=== PATIENT | female | born 1945 | race Caucasian/White ===

== ENCOUNTER 2020-04-11 10:59 | Outpatient (CLI) | payer MEDICARE, SELFPAY ==
--- NOTE | 2020-04-11 11:10 | US_ITS ---
WS: [id number] INDICATION: Left dorsal foot pain TECHNIQUE: Ultrasound soft tissue area of concern FINDINGS: Ultrasound soft tissue area of concern dorsal foot. Normal underlying subcutaneous soft tis sues. No evidence of drainable abscess or fluid collection. No cystic or solid lesions. US/US soft tissue/extremity [id number] IMPRESSION: Normal dorsal foot ultrasound
--- NOTE | 2020-04-11 11:10 | XR_ITS ---
WS: [id number] XR foot LT min 3V* [id number] REASON FOR EXAM: LEFT FOOT PAIN FINDINGS: There is soft tissue swelling of the left foot. There are mild changes of osteoarthropathy with joint space narrowing and subchondral sclerosis in th e middle and distal interphalangeal joints of the second through the fifth toe. There is deformity of the bases of the second through the fourth metatarsals and alteration in the estela int spaces between these metatarsals on the mid foot. Moderate sized enthesophytes from the anterior and posterior calcaneus. XR/XR foot LT min 3V* [id number] IMPRESSION: The abnormality seen at the midfoot forefoot junction at the base of the second through the fourth metatarsals could represent old healed fracture or Lisfranc injury. Correlate with patient's history of trauma or localized pain.
== END 2020-04-11 11:00 | disposition home or self-care (01) ==
PROVIDERS: Visit Provider Nurse Practitioner Family
DX: M79.672 Pain in left foot (principal)
CPT/HCPCS: 73630; 76882

== ENCOUNTER 2020-05-11 13:07 | Outpatient (CLI) | payer MEDICARE, SELFPAY ==
--- NOTE | 2020-05-11 12:45 | USCV_ITS ---
Rosemary Perry Age: 74 Gender: F : 1945 Exam Date: 05/11/2020 13:26 Ordering Phys: Adelina Silveira MD ([email or web address]) Technologist: Saritha Cuba Exam Location: [facility] [place] Indication: DYSPNEA BP: 164 / 72 HR: 64 Rhythm: Sinus Technical Quality: Adequate MEASUREMENTS (Male / Female) Normal Values 2D ECHO LV Diastolic Diameter PLAX 4.3 cm 4.2 - 5.9 / 3.9 - 5.3 cm LV Systolic Diameter PLAX 2.3 cm LV Chamber Size 2.5 cm IVS Diastolic Thickness 1.6 cm 0.6 - 1.0 / 0.6 - 0.9 cm IVS Systolic Thickness 1.9 cm LVPW Diastolic Thickness 2.2 cm 0.6 - 1.0 / 0.6 - 0.9 cm LVPW Systolic Thickness 2.2 cm RV Chamber Size 2.6 cm LVOT Diameter 2.0 cm LV Ejection Fraction 2D Teich 77.8 % LV Ejection Fraction MOD 2C 73.5 % LV Ejection Fraction 2C AL 72.6 % LA Diameter 3.4 cm LA Width 3.6 cm LA Height 4.6 cm RA Width 3.4 cm RA Height 3.7 cm Aorta at Sinotubular Diameter 2.4 cm M-MODE LV Diastolic Diameter MM 5.2 cm 4.2 - 5.9 / 3.9 - 5.3 cm LV Systolic Diameter MM 3.5 cm LV Ejection Fraction MM Teich 60.0 % IVS Diastolic Thickness MM 1.0 cm 0.6 - 1.0 / 0.6 - 0.9 cm IVS Systolic Thickness MM 1.7 cm LVPW Diastolic Thickness MM 1.6 cm 0.6 - 1.0 / 0.6 - 0.9 cm LVPW Systolic Thickness MM 1.9 cm Aortic Annulus Diameter 3.1 cm LA Ao Ratio MM 1.4 MV E Point Septal Separation 0.9 cm DOPPLER AV Peak Velocity 126.0 cm/s LVOT Peak Velocity 92.0 cm/s AV Area Cont Eq vti 2.9 cm squared AV Area Cont Eq pk 2.3 cm squared MV Area PHT 2.7 cm squared Mitral E to A Ratio 0.9 MV E' Velocity 43.5 cm/s Mitral E to MV E' Ratio 7.3 Mitral E to LV E' Lateral Ratio 6.2 Mitral E to LV E' Septal Ratio 9.0 TR Peak Velocity 139.0 cm/s TR Peak Gradient 7.7 mmHg TV Peak E Velocity 87.0 cm/s Right Atrial Pressure 3.0 mmHg Pulmonary Artery Systolic Pressu 10.7 mmHg PV Peak Velocity 108.0 cm/s RV Acceleration Time 0.1 s RV Ejection Time 0.4 s RV AcT/ET 0.1 FINDINGS Left Ventricle Normal left ventricular size, systolic function and wall thickness, with no diagnostic regional wall motion abnormalities. Left ventricular ejection fraction is estimated at 60 %. Normal diastolic function. Right Ventricle Normal right ventricular size and systolic function. Right ventricular systolic pressure 10.7 mmHg. Right Atrium Normal right atrial size. Left Atrium Mildly increased left atrial size. Mitral Valve Mildly thickened mitral valve. No mitral valve stenosis. No significant mitral valve regurgitation. Aortic Valve Aortic valve not well visualized. No aortic valve stenosis. No aortic valve regurgitation. Tricuspid Valve Structurally normal tricuspid valve. Trace to mild tricuspid valve regurgitation. Pulmonic Valve Pulmonic valve not well visualized. Trace pulmonary valve regurgitation. Pericardium No pericardial effusion. Aorta Normal size aortic root and proximal ascending aorta. CONCLUSIONS 1. Normal left ventricular size, systolic function and wall thickness, with no diagnostic regional wall motion abnormalities. Left ventricular ejection fraction is estimated at 60 %. Normal diastolic function. 2. Normal right ventricular size and systolic function. 3. Trace to mild tricuspid valve regurgitation. 4. Norml pulmonary artery pressure. 5. No prior similar studies to compare. Adelina Silveira MD (Electronically Signed) Final Date: 16 May 2020 07:17 S
== END 2020-05-11 13:08 | disposition home or self-care (01) ==
LOC: US 13:08
PROVIDERS: Visit Provider Internal Medicine Cardiovascular Disease
DX: R06.00 Dyspnea, unspecified (principal); I07.1 Rheumatic tricuspid insufficiency
CPT/HCPCS: 93306

== ENCOUNTER → 2020-06-28 10:37 | Outpatient (BNVA) | payer MEDICARE, SELFPAY | PROVIDERS: Visit Provider Internal Medicine Cardiovascular Disease | DX: R06.00 Dyspnea, unspecified (principal); I10 Essential (primary) hypertension; I51.7 Cardiomegaly | CPT/HCPCS: 80048; 83735; 83880 ==

== ENCOUNTER → 2021-08-22 10:44 | Outpatient (BNVA) | payer MEDICARE, SELFPAY | PROVIDERS: PCP Family Medicine; Visit Provider Internal Medicine Cardiovascular Disease | DX: R06.00 Dyspnea, unspecified (principal); I11.9 Hypertensive heart disease without heart failure; Z68.39 Body mass index [BMI] 39.0-39.9, adult | CPT/HCPCS: 99214 ==

== ENCOUNTER 2022-03-27 09:26 | Outpatient (CLI) | payer MEDICARE, SELFPAY ==
--- NOTE | 2022-03-27 09:45 | MM_ITS ---
WS: [id number] BILATERAL SCREENING DIGITAL TOMOSYNTHESIS MAMMOGRAM WITH CAD HISTORY: SCREEN COMPARISON: 03/16/2018 and 11/09/2014 Bilateral CC and MLO views with tomosynthesis and synthetic mammography submitted. Computer aided det ection analyzed. Breast composition: The breasts are heterogeneously dense, which may obscure small masses. No suspici ous masses, microcalcifications or architectural distortion. Benign calcifications in each breast. De nse fibroglandular tissue in the anterior breast. MM/[place] [id number] IMPRESSION: BI-RADS: 2-Benign FOLLOW UP: 1 Year Follow-up
== END 2022-03-27 09:27 | disposition home or self-care (01) ==
LOC: RAD 09:27
PROVIDERS: PCP Family Medicine; Visit Provider Family Medicine
DX: Z12.31 Encounter for screening mammogram for malignant neoplasm of breast (principal)
CPT/HCPCS: 77063; 77067

== ENCOUNTER → 2022-10-29 14:16 | Outpatient (BNVA) | payer MEDICARE, SELFPAY | PROVIDERS: PCP Family Medicine; Visit Provider Internal Medicine Cardiovascular Disease | DX: R06.00 Dyspnea, unspecified (principal); I10 Essential (primary) hypertension; E66.9 Obesity, unspecified; Z68.37 Body mass index [BMI] 37.0-37.9, adult | CPT/HCPCS: 99214 ==

== ENCOUNTER → 2022-11-05 12:47 | Outpatient (BNVA) | payer MEDICARE, SELFPAY | PROVIDERS: PCP Family Medicine; Visit Provider Specialist | DX: G56.03 Carpal tunnel syndrome, bilateral upper limbs (principal); M65.331 Trigger finger, right middle finger; M65.342 Trigger finger, left ring finger | CPT/HCPCS: 73130; 99204 ==

== ENCOUNTER → 2023-01-14 10:04 | Outpatient (BNVA) | payer MEDICARE, SELFPAY | PROVIDERS: PCP Family Medicine; Visit Provider Specialist | DX: Z01.818 Encounter for other preprocedural examination (principal); G56.03 Carpal tunnel syndrome, bilateral upper limbs; M65.331 Trigger finger, right middle finger; M65.342 Trigger finger, left ring finger | CPT/HCPCS: 36415; 80053; 81003; 85025; 99214 ==

== ENCOUNTER 2023-01-20 08:32 | Day surgery (SDC) | payer MEDICARE, SELFPAY ==
[2023-01-20] VITALS (8 sets, daily range): BP systolic 147–198; BP diastolic 78–97; PULSE 58–78; RESP 15–22; TEMP 36.1–36.6; O2SAT 90–100
[2023-01-20] MEDS: sodium chloride 0.9% 1,000 ML 30 ML IV (09:22)
[2023-01-20] MEDS: acetaminophen 1,000 MG/100 ML PIGGYBACK 400 MG IV (09:22)
[2023-01-20] MEDS: CELEcoxib 200 mg Capsule 400 MG PO (09:24)
[2023-01-20] MEDS: gabapentin 300 mg Capsule PO (09:24)
--- NOTE | 2023-01-20 10:02 | ANES.PREANE2 ---
Pre-Anesthetic Assessment Height/Weight: Height 1.63 m Weight 101.151 kg Temp Pulse Resp BP Pulse Ox O2 Del Method 97.3 F L 67 18 147/87 95 Room Air 01/20/23 08:48 01/20/23 08:48 01/20/23 08:48 01/20/23 08:48 01/20/23 08:48 01/20/23 08:53 Operation Date: 01/20/23 10:15 Proposed Procedures p Right carpal tunnel release [id number],Right middle finger trigger finger release [id number](Right) - Teresa Almodovar MD s Trigger Finger Release(Right) - Teresa Almodovar MD Familial anesthetic complications: none Was Beta Lizette taken within 24 hours: N/A Was Clonidine taken within 24 hours: N/A Last intake: Intake Last Liquid Date 01/19/23 Last Liquid Time 19:00 Last Solid Date 01/19/23 Last Solid Time 19:00 Social No alcohol and No tobacco Exam alert, oriented x 3, clear to auscultation bilaterally and regular rate & rhythm Airway Submandibular: within normal limits Cervical ROM: within normal limits Mallampati: Class II Dentition: full CV/HEM Hypertension LVH Metabolic Hyperlipidemia and Morbid Obesity [facility] [place] Osteoarthritis/DJD Anesthetic Plan ASA status: 3 Anesthesia: Choice Medications/Allergies Home Medications Medication Instructions Recorded Confirmed Last Taken Type acetaminophen 325 mg tablet 325 mg PO QID PRN Pain 10/29/22 01/19/23 01/18/23 History ibuprofen 200 mg tablet 200 mg PO Q6H PRN Pain 10/29/22 01/19/23 01/12/23 History naproxen 500 mg tablet 500 mg PO BID PRN Pain 10/29/22 01/19/23 01/12/23 History pravastatin 10 mg tablet 10 mg PO DAILY #30 tabs 10/29/22 01/19/23 01/19/23 Rx vitamin D3 25 mcg (1,000 unit)-vit 1 tab PO DAILY 10/29/22 01/19/23 01/15/23 History K2 90 mcg disintegrating tablet chlorthalidone 25 mg tablet 37.5 mg PO DAILY #135 tabs 01/12/23 01/19/23 01/19/23 Rx omega-3 fatty acids 1,000 mg 1,000 mg PO DAILY 01/15/23 01/19/23 01/15/23 History capsule Allergies Allergy/AdvReac Type Severity Reaction Status Date / Time atorvastatin AdvReac Mild Leg pain, Verified 01/20/23 08:42 fatigue, gait problems Current Medications Generic Name Dose Route Start Last Admin Trade Name Freq PRN Reason Stop Dose Admin Sodium Chloride 1,000 mls @ 30 mls/hr 01/20/23 08:45 01/20/23 09:22 Sodium Chloride 0.9% IV 01/21/23 08:44 30 mls/hr .Q24H SURY Administration PFSH Anesthesia Medical History Arthritis, midfoot Gout HTN (hypertension) Hyperlipidemia LVH (left ventricular hypertrophy) Obesity Surgical History History of mandibular surgery Hx laparoscopic cholecystectomy Hx of hysterectomy Hx of tonsillectomy Family History Denies family history of CAD (coronary artery disease) Clotting disorder Anesthesia complication Bleeding disorder Stroke Social History Smoking and tobacco status: never smoked Alcohol intake: never Substance/Drug Use: never Data Anesthesia Cardiac Studies: Echocardiogram Ultrasound 05/11/20
--- NOTE | 2023-01-20 10:19 | P.HPUD_ITS ---
Surgery/Procedure H&P Update DATE OF PROCEDURE: January 20, 2023 DATE H&P PERFORMED: 01/15/23 H&P UPDATE INFORMATION: I have reviewed H&P completed within last 30 days, I have examined patient prior to procedure, No changes to prior documentation and H&P is in [facility] [place] EMR on date indicated PLANNED PROCEDURE: Operation Date: 01/20/23 10:15 Proposed Procedures p Right carpal tunnel release [id number],Right middle finger trigger finger release [id number](Right) - Teresa Almodovar MD s Trigger Finger Release(Right) - Teresa Almodovar MD Related Problem List Diagnoses (1) Carpal tunnel syndrome on right: (2) Trigger finger, right middle finger:
[2023-01-20] MEDS: ceFAZolin 2,000 MG in sodium chloride 0.9% (plus) 50 ML 100 MG IV (10:40)
[2023-01-20] MEDS: BUPivacaine 0.5% INJ 30 mL INJECTION (11:07)
--- NOTE | 2023-01-20 11:43 | P.OP_ITS ---
Operative Report Date of procedure: January 20, 2023 Pre-op diagnosis: Right carpal tunnel syndrome and triggering of right middle finger Post-op diagnosis: Right carpal tunnel syndrome and triggering of right middle finger Post-op findings: Purplish discoloration of the median nerve and significantly tight A1 srikanth to the right long finger Procedure done: Right carpal tunnel release with release right middle finger triggering Pathology: none sent Surgeon: Teresa Almodovar Farm Machine Tender: None Anesthesia: General (Per LMA, ASA 3 with local at end of case) Estimated blood loss (mL): 3 Tourniquet time (min): 21 (At 250 mmHg) IV fluids (mL): 100 Urine output (mL): 0 (No Cadena) Complications: None Condition: stable Disposition: PACU (Then return to same-day surgery for discharge to home) Brief History: This 77-year-old woman presented with complaints consistent with bilateral carpal tunnel syndrome. She also has had locking up of her right middle finger as well as her left ring finger. The patient presents today to address her right carpal tunnel as this is her more symptomatic hand. She has difficulties with activities of daily living. She had a nerve conduction study at [facility] in [place] which was consistent with carpal tunnel syndrome as well bilaterally. Today, she wishes to have her carpal tunnel release as well as undergo release of triggering of her right long finger. In the office, risks and complications were discussed, and consents were signed. Procedure: The patient was brought to the operating theater. General anesthesia was administered per LMA, ASA 3. The arm was exsanguinated, and the tourniquet was elevated to 250 mmHg for a total tourniquet time of 21 minutes. The patient was also given Ancef 2 g preoperatively. The arm was then prepped and draped with DuraPrep in usual fashion with the arm draped free. A surgical pause was performed. At the time, the surgical pause, we confirmed the site and side of surgery. We also confirmed the patient's identity, appropriate and timely administration of preoperative antibiotics and preoperative surgical markings. An incision was then made along the thenar crease. The incision crossed the wrist joint in a curvilinear fashion. Dissection continued through skin and soft tissues using a scalpel. The palmaris longus was identified along with the transverse carpal ligament. Each of these was released carefully to avoid injury to the median nerve. We were able to dissect gently into the carpal canal which was noted to be quite tight with significant compression across the median nerve. The nerve was visualized and was an hourglass shape with significant purpleish discoloration. Following release, the canal was subsequently palpated to assure there was no bony encroachment upon the canal. There was a quite thickened fibrous tissue within the canal, and this was opened longitudinally as well. The canal was then palpated distally and proximally to assure that my small finger was passed easily without impingement. Finding this to be so, attention was directed to closure. The wound was irrigated with ropivacaine plai n. It was then closed with 3-0 nylon in an interrupted mattress fashion. An incision was made along the distal palmar crease beneath the middle fingers. Dissection continued through the skin to the subcutaneous tissues using a scalpel. Blunt dissection was then utilized to spread soft tissues and allow access to the A1 srikanth. It was then incised longitudinally and sharply using a knife. This was accomplished without difficulty and atraumatically. Once the A1 srikanth was released, tendons were brought up out of the wound and evaluated. There was noted to be no mass or other significant pathology on the tendons. Tendons were returned to normal position. We then irrigated the wounds and subsequently closed them with 3-0 nylon with an interrupted mattress type suture. Following closure of the wound, the wound was injected with half percent bupivacaine into the subcutaneous tissues as a local anesthetic. Sterile dressing was then placed consisting of Dermabond, OpSite, fluffed fluffs, sterile soft roll, and an Praveen wrap. The patient was returned to recovery in satisfactory condition. She will be discharged home to follow-up with me in the office. There were no complications and no specimens. Related Problem List Diagnoses (1) Carpal tunnel syndrome on right: (2) Trigger finger, right middle finger:
[2023-01-20] MEDS: HYDROcodone-acetaminophen 5-325 mg Tablet 1 TAB PO (12:44)
--- NOTE | 2023-01-20 16:11 | ANE.PACU2 ---
Inpatient post-anesthesia follow up: Airway intact: Yes Vital signs: Temperature 97.8 F Pulse Rate 66 Respiratory Rate 18 Blood Pressure 160/90 Pulse Oximetry 90 Oxygen Delivery Me thod Room Air Oxygen Flow Rate 8 Fraction of Inspir ed Oxygen Hydration adequate: Yes Nausea and vomiting: No Pain level: 2 Mental status: Baseline
== END 2023-01-20 13:34 | disposition home or self-care (01) ==
LOC: OR 08:41 → OPS 09:19
PROVIDERS: PCP Family Medicine; Visit Provider Specialist
PROC: (CPT 64721; principal; 2023-01-20 10:05)
PROC: (CPT 26055; 2023-01-20 10:05)
DX: M65.331 Trigger finger, right middle finger (principal); I10 Essential (primary) hypertension; E78.5 Hyperlipidemia, unspecified; E66.01 Morbid (severe) obesity due to excess calories; Z68.38 Body mass index [BMI] 38.0-38.9, adult; G56.03 Carpal tunnel syndrome, bilateral upper limbs
CPT/HCPCS: 26055; 64721; J0131; J0690; J1100; J1200; J2405; J2704; J3010; J3490; J7030

== ENCOUNTER → 2023-02-04 08:31 | Outpatient (BNVA) | payer MEDICARE, SELFPAY | PROVIDERS: PCP Family Medicine; Visit Provider Nurse Practitioner Family | DX: G56.01 Carpal tunnel syndrome, right upper limb (principal); Z98.890 Other specified postprocedural states | CPT/HCPCS: 99024 ==

== ENCOUNTER → 2023-02-13 09:39 | Outpatient (BNVA) | payer MEDICARE, SELFPAY | PROVIDERS: PCP Family Medicine; Visit Provider Nurse Practitioner Family | DX: L57.0 Actinic keratosis (principal); L82.0 Inflamed seborrheic keratosis; L82.1 Other seborrheic keratosis; L81.4 Other melanin hyperpigmentation; L57.8 Other skin changes due to chronic exposure to nonionizing radiation; L91.8 Other hypertrophic disorders of the skin; Z85.828 Personal history of other malignant neoplasm of skin | CPT/HCPCS: 11200; 17000; 17003; 17110; 99213 ==

== ENCOUNTER → 2023-03-20 10:45 | Outpatient (BNVA) | payer MEDICARE, SELFPAY | PROVIDERS: PCP Family Medicine; Visit Provider Nurse Practitioner | DX: G56.01 Carpal tunnel syndrome, right upper limb (principal); Z98.890 Other specified postprocedural states | CPT/HCPCS: 99024 ==

== ENCOUNTER 2023-03-25 14:44 | Outpatient (RCR) | payer MEDICARE, SELFPAY | END 2023-04-07 23:59 | disposition home or self-care (01) | LOC: SOT 14:44 | PROVIDERS: PCP Family Medicine; Visit Provider Nurse Practitioner | DX: Z47.89 Encounter for other orthopedic aftercare (principal); M79.641 Pain in right hand; R53.1 Weakness | CPT/HCPCS: 97022; 97110; 97140; 97165; 97530 ==

== ENCOUNTER 2023-04-08 06:00 | Outpatient (RCR) | payer MEDICARE, SELFPAY | END 2023-05-07 23:59 | disposition home or self-care (01) | LOC: SOT 06:00 | PROVIDERS: PCP Family Medicine; Visit Provider Nurse Practitioner | DX: M79.641 Pain in right hand (principal); Z51.89 Encounter for other specified aftercare | CPT/HCPCS: 97022; 97035; 97110; 97140 ==

== ENCOUNTER → 2023-10-20 10:13 | Outpatient (BNVA) | payer MEDICARE, SELFPAY | PROVIDERS: PCP Family Medicine; Visit Provider Nurse Practitioner Family | DX: I10 Essential (primary) hypertension (principal) | CPT/HCPCS: 99214 ==

== ENCOUNTER 2023-11-11 10:17 | Outpatient (CLI) | payer MEDICARE, SELFPAY ==
--- NOTE | 2023-11-11 10:30 | USCV_ITS ---
Rosemary Perry Age: 78 Gender: F : 1945 Exam Date: 11/11/2023 10:30 Ordering Phys: Barbara Sears Technologist: DANIEL Exam Location: [facility] [place] Indication: shortness of breath BP: 141 / 78 HR: 67 Rhythm: Sinus Technical Quality: Adequate MEASUREMENTS (Male / Female) Normal Values 2D ECHO LV Diastolic Diameter PLAX 4.6 cm 4.2 - 5.9 / 3.9 - 5.3 cm IVS Diastolic Thickness 0.8 cm 0.6 - 1.0 / 0.6 - 0.9 cm IVS Systolic Thickness 1.7 cm LVPW Diastolic Thickness 1.7 cm 0.6 - 1.0 / 0.6 - 0.9 cm LVPW Systolic Thickness 2.2 cm LVOT Diameter 2.0 cm LV Ejection Fraction 2D Teich 59.1 % LV Ejection Fraction MOD 2C 51.0 % LV Ejection Fraction 2C AL 51.7 % LA Diameter 3.8 cm RA Systolic Volume 4C AL 31.5 ml RA Systolic Volume 4C MOD 30.2 ml LA Sys Volume AL 37.3 cm cubed LA Sys Volume Index AL 16.8 cm cubed/m squared Aorta at Sinotubular Diameter 2.1 cm IVC Diameter 1.8 cm M-MODE LA Ao Ratio MM 1.1 AV Cusp Separation MM 1.5 cm DOPPLER AV Peak Velocity 125.0 cm/s LVOT Peak Velocity 74.0 cm/s AV Area Cont Eq vti 2.1 cm squared AV Area Cont Eq pk 1.8 cm squared MV Peak Velocity 103.0 cm/s MV Area PHT 2.7 cm squared Mitral E to A Ratio 0.7 TR Peak Velocity 144.0 cm/s TR Peak Gradient 8.3 mmHg TR Mean Velocity 133.0 cm/s TR Mean Gradient 7.3 mmHg TR Velocity Time Integral 45.3 cm TV Peak E Velocity 43.0 cm/s Right Atrial Pressure 3.0 mmHg Pulmonary Artery Systolic Pressu 11.3 mmHg PV Peak Velocity 86.0 cm/s RV Ejection Time 0.4 s FINDINGS Left Ventricle Normal left ventricular size and systolic function, EF 55%, visual. No regional wall motion abnormalities.Grade I/IV diastolic dysfunction (abnormal relaxation filling pattern), normal to mildly elevated filling pressures. Right Ventricle The right ventricle is normal in size and function. Right Atrium The right atrium is normal in size. Left Atrium The left atrium is normal in size. Mitral Valve No gross abnormalities Aortic Valve No gross abnormalities Tricuspid Valve No gross abnormalities Pulmonic Valve No gross abnormalities Pericardium Normal pericardium without effusion. Aorta Normal ascending aorta dimension. IVC The inferior vena cava appears normal. CONCLUSIONS Normal left ventricular size and systolic function, EF 55%, visual. No regional wall motion abnormalities.Grade I/IV diastolic dysfunction (abnormal relaxation filling pattern), normal to mildly elevated filling pressures. Normal cardiac chamber sizes. No gross valvular abnormalities There is no pericardial effusion. There are no intracardiac masses. Compared to the study from 05/11/2020, there may not be a significant change Dr Vilma Mojica MD FACC (Electronically Signed) Final Date: 13 November 2023 14:59 S
== END 2023-11-11 10:18 | disposition home or self-care (01) ==
LOC: RAD 10:17
PROVIDERS: PCP Family Medicine; Visit Provider Nurse Practitioner Family
DX: I10 Essential (primary) hypertension (principal); I50.30 Unspecified diastolic (congestive) heart failure
CPT/HCPCS: 93306

== ENCOUNTER 2024-01-01 14:41 | Outpatient (CLI) | payer MEDICARE, SELFPAY ==
--- NOTE | 2024-01-01 14:52 | MM_ITS ---
WS: [id number] BILATERAL 3D TOMOSYNTHESIS DIGITAL SCREENING MAMMOGRAPHY WITH CAD CLINICAL INFORMATION: SCREEN HISTORY: Screening mammogram. No current complaints. COMPARISON: 2021 TECHNIQUE: Bilateral CC and MLO views. FINDINGS: The breasts are composed of heterogeneous fibroglandular density tissue, which can limit the detectio n of small underlying mass lesions. No suspicious mass, asymmetry, calcifications, or architectural d istortion. No evidence of malignancy. Stable benign breast calcifications. Vascular calcifications. MM/[place] [id number] IMPRESSION: BI-RADS: 2-Benign FOLLOW UP: 1 Year Follow-up Recommend return to annual screening mammography.
== END 2024-01-01 14:42 | disposition home or self-care (01) ==
LOC: RAD 14:42
PROVIDERS: PCP Family Medicine; Visit Provider Family Medicine
DX: Z12.31 Encounter for screening mammogram for malignant neoplasm of breast (principal); R92.333 Mammographic heterogeneous density, bilateral breasts; R92.1 Mammographic calcification found on diagnostic imaging of breast
CPT/HCPCS: 77063; 77067

== ENCOUNTER → 2024-02-15 12:53 | Outpatient (BNVA) | payer MEDICARE, SELFPAY | PROVIDERS: PCP Family Medicine; Visit Provider Nurse Practitioner Family | DX: L82.0 Inflamed seborrheic keratosis (principal); L82.1 Other seborrheic keratosis; L81.4 Other melanin hyperpigmentation; L57.8 Other skin changes due to chronic exposure to nonionizing radiation; L73.8 Other specified follicular disorders; D48.5 Neoplasm of uncertain behavior of skin; L57.0 Actinic keratosis; Z85.828 Personal history of other malignant neoplasm of skin | CPT/HCPCS: 11102; 17000; 17110; 99213 ==

== ENCOUNTER → 2024-03-30 11:21 | Outpatient (BNVA) | payer MEDICARE, SELFPAY | PROVIDERS: PCP Family Medicine; Visit Provider Nurse Practitioner Family | DX: L21.8 Other seborrheic dermatitis (principal); L82.1 Other seborrheic keratosis; L81.4 Other melanin hyperpigmentation; L57.8 Other skin changes due to chronic exposure to nonionizing radiation; L73.8 Other specified follicular disorders; D18.01 Hemangioma of skin and subcutaneous tissue | CPT/HCPCS: 17000; 99214 ==

== ENCOUNTER 2024-07-04 11:41 | Outpatient (RCR) | payer MEDICARE, SELFPAY | END 2024-07-08 23:59 | disposition home or self-care (01) | LOC: SPT 11:41 | PROVIDERS: PCP Family Medicine; Visit Provider Family Medicine | DX: M75.41 Impingement syndrome of right shoulder (principal) | CPT/HCPCS: 97161 ==

== ENCOUNTER 2024-07-09 06:00 | Outpatient (RCR) | payer MEDICARE, SELFPAY | END 2024-08-05 23:59 | disposition home or self-care (01) | LOC: SPT 06:00 | PROVIDERS: PCP Family Medicine; Visit Provider Family Medicine | DX: M75.41 Impingement syndrome of right shoulder (principal) | CPT/HCPCS: 97110 ==

== ENCOUNTER 2024-08-06 06:30 | Outpatient (RCR) | payer MEDICARE, SELFPAY | END 2024-09-05 23:59 | disposition home or self-care (01) | LOC: SPT 06:30 | PROVIDERS: PCP Family Medicine; Visit Provider Family Medicine | DX: M75.41 Impingement syndrome of right shoulder (principal) | CPT/HCPCS: 97110 ==

== ENCOUNTER → 2024-09-28 09:14 | Outpatient (BNVA) | payer MEDICARE, SELFPAY | PROVIDERS: PCP Family Medicine; Visit Provider Nurse Practitioner Family | DX: L21.8 Other seborrheic dermatitis (principal); L57.8 Other skin changes due to chronic exposure to nonionizing radiation; L60.8 Other nail disorders; L82.1 Other seborrheic keratosis; L81.4 Other melanin hyperpigmentation; L73.8 Other specified follicular disorders; D18.01 Hemangioma of skin and subcutaneous tissue; Z08 Encounter for follow-up examination after completed treatment for malignant neoplasm; Z85.828 Personal history of other malignant neoplasm of skin; L82.0 Inflamed seborrheic keratosis; Z78.9 Other specified health status; L53.8 Other specified erythematous conditions | CPT/HCPCS: 17000; 17110; 99214 ==

== ENCOUNTER → 2024-10-10 10:42 | Outpatient (BNVA) | payer MEDICARE, SELFPAY | PROVIDERS: PCP Family Medicine; Visit Provider Internal Medicine Cardiovascular Disease | DX: I10 Essential (primary) hypertension (principal); R53.83 Other fatigue; I51.7 Cardiomegaly; R06.09 Other forms of dyspnea; E78.00 Pure hypercholesterolemia, unspecified; I49.3 Ventricular premature depolarization; R07.9 Chest pain, unspecified; N18.9 Chronic kidney disease, unspecified; R53.1 Weakness; Z98.61 Coronary angioplasty status; Z79.01 Long term (current) use of anticoagulants | CPT/HCPCS: 80053; 84443; 85025; 93005; 99215 ==

== ENCOUNTER 2024-10-11 07:42 | Outpatient (RCR) | payer MEDICARE, SELFPAY | END 2024-11-05 23:59 | disposition home or self-care (01) | LOC: SPT 07:42 | PROVIDERS: PCP Family Medicine; Visit Provider Family Medicine | DX: M75.41 Impingement syndrome of right shoulder (principal) | CPT/HCPCS: 97110; 97161 ==

== ENCOUNTER 2024-11-03 08:25 | Outpatient (CLI) | payer MEDICARE, SELFPAY ==
--- NOTE | 2024-11-03 | ECG_ITS ---
[facility] Test Date: 2024-11-03 Pat Name: Rosemary Perry Department: Room: Gender: Female Manager Photography: : 1945 Requested By: Vilma Mojica Order Number: [id number] Litzy MD: Vilma Mojica M.D. Interpretive Statements Lung unchanged pre/post procedure; Intraprocedure shortess of breath; Symptoms resoled by discharge PROCEDURE: At the baseline, the EKG revealed sinus rhythm with a poor R wave progression. Possible old inferior wall [place]. The baseline heart was 63 bpm with a blood pressue of 114/58 mm of Hg Lexiscan was infused over a period of 20 seconds. A total of 0.4 milligrams of Lexiscan was infused. The stress phase was continued for a total of 5 minutes. Heart rate at the end of the stress phase was 73 bpm with a blood pressure 107/55 mm of Hg. The EKG at the peak infusion revealed no significant changes. Rare PVCs were noted Sestamibi was injected 20 seconds after the Lexiscan infusion. Heart rate at the end of the recovery phase was 71 bpm with a blood pressure of 116/58 mm of Hg. CONCLUSION: 1. No significant EKG changes with the LexiScan infusion 2. No LexiScan induced chest pain or cardiac arrhythmia 3. Normal blood pressure and heart rate response 4. Sestamibi/sestamibi perfusion scan pending; see separate report. Electronically Signed On 11-07-2024 15:26:44 CDT by Vilma Mojica M.D. [email or web address]
[2024-11-03 09:14] VITALS: BMI 37.8
--- NOTE | 2024-11-03 09:15 | NMCV_ITS ---
NM silvana perf SPECT r/s* [id number] Rosemary Perry Age: 79 Gender: F : 1945 Exam Date: 11/03/2024 09:30 Ordering Phys: Vilma Mojica MD ([email or web address]) Technologist: LUANNE Pagan Exam Location: [facility] Indications: CP STRESS TEST Please see separate stress test report in [facility] for full findings IMAGE PROTOCOL Rest/Stress 1 Lexiscan Day Radiopharmaceutical Dose (mCi) Administration Site Administered by Rest: Tc-99m 10.6 IV Cristy Benson [employer] SCI[employer]IST Sestamibi Stress:Tc-99m 32.4 IV Cristy Benson, WE[employer] SCIENTIST Sestamibi Rest: 03-Nov-2024 60 Discovery 630 Stress: 03-Nov-2024 30 Discovery 630 0.4mg Lexiscan. Images obtained in supine and prone position. SPECT RESULTS Technical Quality: Good Raw Data Analysis: Normal Image Corrections: No attenuation or motion correction applied Summed Stress Score: 0 Summed Rest Score: 3 Summed Difference Score: 0 PERFUSION FINDINGS SPECT images demonstrate homogeneous tracer distribution throughout the myocardium. FUNCTIONAL RESULTS (calculated via Gated SPECT) Stress Image LV EF (%): 78 Stress EDV (mL):59 TID: 1.46 Stress ESV (mL):13 FUNCTIONAL FINDINGS: There is normal left ventricular systolic function. TID ratio is elevated which could be secondary to left ventricle hypertrophy/subendocardial ischemia in the absence of wall motion abnormality IMPRESSIONS Myocardial perfusion imaging is normal. Dave Amaral MD (Electronically Signed) Final Date: 11 November 2024 19:27 S
[2024-11-03] MEDS: regadenoson 0.4 Mg/5 ml Syringe IVP (10:16)
[2024-11-03 10:35] VITALS: BP 116/58; PULSE 71
== END 2024-11-03 08:26 | disposition home or self-care (01) ==
PROVIDERS: PCP Family Medicine; Visit Provider Internal Medicine Cardiovascular Disease
DX: R06.02 Shortness of breath (principal); R93.1 Abnormal findings on diagnostic imaging of heart and coronary circulation
CPT/HCPCS: 36415; 78452; 93017; 96374; A9500; J2785

== ENCOUNTER 2024-11-06 06:30 | Outpatient (RCR) | payer MEDICARE, SELFPAY | END 2024-12-05 23:59 | disposition home or self-care (01) | LOC: SPT 06:30 | PROVIDERS: PCP Family Medicine; Visit Provider Family Medicine | DX: M75.41 Impingement syndrome of right shoulder (principal) | CPT/HCPCS: 97110 ==

== ENCOUNTER → 2025-01-11 10:51 | Outpatient (BNVA) | payer MEDICARE, SELFPAY | PROVIDERS: PCP Family Medicine; Visit Provider Internal Medicine Cardiovascular Disease | DX: R53.83 Other fatigue (principal); R05.1 Acute cough; I10 Essential (primary) hypertension; R06.09 Other forms of dyspnea; E78.5 Hyperlipidemia, unspecified; I49.3 Ventricular premature depolarization | CPT/HCPCS: 99214 ==